=== PATIENT | male | born 1985 | race Caucasian/White ===

== ENCOUNTER 2022-03-03 02:32 | Emergency (ER) | payer MEDICAID, OTHER ==
[2022-03-03 02:44] VITALS: BP 124/80
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
[2022-03-03] MEDS ORDERED: MUPIROCIN 2% OINT 1 GM TOP STA (03:00)
[2022-03-03] MEDS ORDERED: SULFAMETH/TRIMETH DS 800/160 MG TABLET PO STA (03:00)
[2022-03-03] MEDS ORDERED: HYDROcod/ACETAM 5/325 MG TABLET PO STA (03:02)
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
== END 2022-03-03 03:46 | disposition home or self-care (01) ==
LOC: ED 02:32
DX: S93.401A Sprain of unspecified ligament of right ankle, initial encounter (principal); S91.011A Laceration without foreign body, right ankle, initial encounter; V86.59XA Driver of other special all-terrain or other off-road motor vehicle injured in nontraffic accident, initial encounter; Y93.I9 Activity, other involving external motion
CPT/HCPCS: 73130; 73610; 87070; 87077; 87205; 99282; 99284; A9270

== ENCOUNTER 2022-08-02 19:12 | Emergency (ER) | payer MEDICAID ==
[2022-08-02] MEDS ORDERED: PROPOFOL 200 MG/20 ML VIAL IVP STA (19:39)
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
--- NOTE | 2022-08-02 19:55 | XRAY Report ---
PROCEDURE: Shoulder 2 View LT INDICATIONS: shoulder inj TECHNIQUE: 2 views of the shoulder were acquired. COMPARISON: None. FINDINGS: Bones: Anterior-inferior shoulder dislocation. No suspicious bony lesions. Visualized ribs appear i ntact. Soft tissues: No suspicious soft tissue calcifications. IMPRESSION: Anterior-inferior shoulder dislocation. Reviewed by: Migel Prado MD on 08/02/2022 7:54 PM PST Approved by: Migel Prado MD on 08/02/2022 7:54 PM PST Station ID: [id number]
--- NOTE | 2022-08-02 20:19 | XRAY Report ---
PROCEDURE: Shoulder 2 View LT INDICATIONS: post reduction TECHNIQUE: 2 views of the shoulder were acquired. COMPARISON: Films performed earlier the same day FINDINGS: Bones: Successful reduction of the glenohumeral joint dislocation. Linear, longitudinal deformity susan ng the humeral head suggesting a Hill-Sachs impaction fracture. AC joint and CC interval remaining no rmal. Visualized ribs appear intact. Soft tissues: No suspicious soft tissue calcifications. IMPRESSION: 1. Successful shoulder reduction. 2. Probable Hill-Sachs impaction fracture deformity. Reviewed by: Nani Dalton MD on 08/02/2022 8:18 PM PST Approved by: Nani Dalton MD on 08/02/2022 8:18 PM PST Station ID: [id number]
[2022-08-02 20:33] VITALS: BP 123/85
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
== END 2022-08-02 20:32 | disposition home or self-care (01) ==
LOC: ED 19:12
DX: M24.412 Recurrent dislocation, left shoulder (principal); F17.200 Nicotine dependence, unspecified, uncomplicated
CPT/HCPCS: 23650; 99152; 99283